=== PATIENT | male | born 1950 | race Two or more races ===

== ENCOUNTER → 2017-12-05 | Outpatient (CLI) | payer OTHER, MEDICAID | END | disposition home or self-care (01) | LOC: RAD 16:40 | DX: M47.896 Other spondylosis, lumbar region (principal); R05 Cough | CPT/HCPCS: 71046; 72100 ==

== ENCOUNTER → 2018-01-12 | Day surgery (SDC) | payer OTHER, MEDICAID ==
[~2018-01-12] MED LIST: LIDOCAINE 1% PF 2 ML VIAL. ID; LIDOCAINE 2% PF Vial for OR 5 ML VIAL.; MORPHINE SULFATE 2 MG/ML DISP.SYRIN. IV; ONDANSETRON PF 4 MG/2 ML VIAL. IV; PROCHLORPERAZINE 10 MG/2 ML VIAL. IV; PROPOFOL 20 ML IV; fentaNYL PF VIAL 100 MCG/2 ML VIAL IV
[2018-01-12] MEDS: IV RINGERS,LACTATED 1000ML 1,000 ML IV ×2 (09:58)
== END | disposition home or self-care (01) ==
LOC: ENDOS 09:30
DX: K64.0 First degree hemorrhoids (principal); M19.90 Unspecified osteoarthritis, unspecified site; Z98.890 Other specified postprocedural states; Z96.651 Presence of right artificial knee joint; Z87.19 Personal history of other diseases of the digestive system
CPT/HCPCS: 45378; J2001; J2704